=== PATIENT | female | born 1930 | race Caucasian/White ===

== ENCOUNTER 2016-11-29 16:24 | Observation (INO) ==
--- NOTE | 2016-11-29 16:37 | Emergency Department Note ---
Disposition Clinical Impression: Hyperlipidemia, Hypertension, Anxiety, Syncope, Head injury, Elevated INR, Frail elderly Disposition: Admitted As Inpatient Condition: Fair Referrals: Celia Wilcox CNP [Primary Care Provider] - Forms: ED Satisfaction Letter General Adult HPI - General Chief complaint: ED Fall Stated complaint: Fall Time Seen by Provider: 11/29/16 16:33 Source: EMS - History of Present Illness HPI Narrative: 86-year-old female who reports she lives at home alone comes in by EMS. The patient reports she was making some food, she was sitting down, she was getting up to get to her walker. She does remember what happened after that. She states she fell down and hit her head. She has a headache. She reports she may have been unconscious for 20 minutes or so. She was able to crawl to the telephone. The patient reports she was feeling well prior to the event. There is no history of chest pain shortness of breath abdominal pain vomiting or diarrhea she denies any upper or lower extremity pain. There is no history of loss of urine or stool or kasey seizure-like activity. The patient describes significant head pain after the event. There is no history of neck pain or paresis. There has been no trouble moving the arms or legs independently. No history of unilateral arm or leg weakness or slurred speech. The patient denies diabetes. There is no history of bleeding. The patient has had no urine problems. There is no history of fever or cough. Triage notes that the patient is somewhat anxious fearing for her safety based on potential persons in the area or in her attic, he describes multiple breaking and entering into her garage. There may be an element of confusion or delirium regarding her history of other persons living in her attic. Anxiety may also be a significant component. 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 Acidophilus/Pectin, [place] 1 each PO DAILY 11/29/16 11/29/16 [Acidophilus Probiotic Capsule] LORazepam [Ativan] 0.5 mg PO BID PRN 11/29/16 11/29/16 Potassium Chloride [Klor-Con 10] 10 meq PO DAILY 11/29/16 11/29/16 Triamterene/HCTZ 37.5/25mg 1 each PO QAM 11/29/16 11/29/16 [Dyazide] Warfarin [Coumadin] 5 mg PO DAILY 11/29/16 11/29/16 Allergies Allergy/AdvReac Type Severity Reaction Status Date / Time No Known Allergies Allergy Verified 08/19/15 11:23 All systems ED: reviewed and negative except as stated. Past Medical History - Past Medical History Medical history: Reports: arthritis, cancer, hyperlipidemia, hypertension Psychiatric history: Reports: depression, other - Social History Smoking Status: Former smoker Smokeless Tobacco Status: No Alcohol use: Reports: none Drug use: Reports: none Physical Exam - General Limitations: no limitations General appearance: alert - Head Head exam: atraumatic, normocephalic, normal inspection - Eye Eye exam: Present: normal appearance, PERRL, EOMI. Absent: scleral icterus, conjunctival injection, miosis, mydriasis - ENT ENT exam: normal exam, normal oropharynx, mucous membranes moist, TM's normal bilaterally, normal external ear exam - Neck Neck exam: Present: normal inspection, full ROM, trachea midline. Absent: tenderness - Chest Chest inspection: Present: symmetric chest wall rise. Absent: tenderness - Respiratory Respiratory exam: Present: normal lung sounds bilaterally. Absent: respiratory distress - Cardiovascular Cardiovascular exam: Present: regular rate, normal rhythm, normal heart sounds - Abdominal Exam Abdominal exam: Present: soft, Non-Tender. Absent: tenderness, distention, guarding, rebound, rigidity, trauma - Extremities Exam Extremities exam: Present: normal inspection, normal capillary refill, other ( Decreased range of motion secondary to arthritides and age.). Absent: tenderness, pedal edema, joint swelling, calf tenderness - Expanded Lower Extremity Exam Hip/Pelvis exam: Absent: tenderness Lower leg exam: Absent: Homans' sign Neurovascular/Tendon exam: Absent: motor deficit, sensory deficit, tendon deficit - Back Exam Back exam: Present: normal inspection, full ROM. Absent: tenderness, CVA tenderness (R), CVA tenderness (L), vertebral tenderness - Neurological Exam Neurological exam: Present: alert, oriented X3, CN II-XII intact. Absent: motor sensory deficit - Psychiatric Psychiatric exam: Present: normal affect - Skin Skin exam: Present: warm, dry, intact, normal color. Absent: rash, cyanosis, diaphoresis, erythema, pallor, mottled Course Vital Signs Temperature 97.6 F 11/29/16 16:27 Pulse Rate 72 11/29/16 16:27 Respiratory Rate 14 11/29/16 16:27 Blood Pressure 132/76 11/29/16 16:27 O2 Sat by Pulse Oximetry 100 11/29/16 16:27 Temperature 97.6 F 11/29/16 16:27 Pulse Rate 74 11/29/16 17:59 Respiratory Rate 14 11/29/16 17:59 Blood Pressure 123/55 11/29/16 17:59 O2 Sat by Pulse Oximetry 100 11/29/16 17:59 Oxygen Delivery Oxygen Delivery Room Air Medical Decision Making - MDM Narrative Medical decision making narrative: The patient is 86 years old, lives alone at home, had a syncopal event which is well described as well as a head injury. She is on Coumadin, she displays no bleeding or acute neurologic changes. She does have some apparent anxiety related to persons living in the area. There may be an element of delusional thinking as she thinks someone may be in her attic or this may simply reflect anxiety. Given her frail elderly status and syncopal event with head injury in association with hypertension and hyperlipidemia as vascular risk factors, I think would be appropriate to admit the patient for observation. I do not believe the patient had a pulmonary embolism. She has had no chest pain shortness of breath or cough. Her vitals remained stable. I have consulted with the hospitalist on-call. - Lab Data Lab results reviewed: Yes I reviewed the patient's lab results. Result diagrams: 11/29/16 17:12 11/29/16 17:12 Lab Results 11/29/16 11/29/16 11/29/16 Range/Units 17:12 17:12 17:12 WBC 6.1 (4.3-11.1) K/mcL RBC 4.56 (3.82-4.97) M/mcL Hgb 13.4 (11.5-15.4) g/dL Hct 39.6 (35.3-44.9) % MCV 86.8 (83.0-100.0) fL MCH 29.4 (28.0-33.3) pg MCHC 33.8 (31.6-35.5) g/dL RDW 13.7 (11.5-14.5) % Plt Count 247 (140-400) K/mcL MPV 8.9 L (9.4-12.4) fL Immature Gran % 0.3 (0-4) % Seg Neutrophils % 65.7 % Lymphocytes % 24.8 % Monocytes % 6.5 % Eosinophils % 2.0 % Basophils % 0.7 % Neutrophils # 4.0 (1.6-8.9) K/mcL Lymphocytes # 1.5 (0.6-4.6) K/mcL Monocytes # 0.4 (0.0-1.3) K/mcL Eosinophils # 0.1 (0.0-0.6) K/mcL Basophils # 0.0 (0.0-0.2) K/mcL PT 17.2 H (9.4-12.1) Seconds INR 1.6 APTT 37.1 H (26.0-36.0) Seconds Sodium 137 (136-145) mEq/L Potassium 3.7 (3.5-4.5) mEq/L Chloride 101 (98-109) mEq/L Carbon Dioxide 25 (19-29) mEq/L BUN 21 H (7-20) mg/dL Creatinine 0.75 (0.57-1.11) mg/dL Est GFR ( Amer) > 60 (> 60) Est GFR (Non-Af Amer) > 60 (> 60) BUN/Creatinine Ratio 28 H (6-26) Glucose 87 (70-99) mg/dL Calculated Osmolality 286 (280-300) Lactic Acid (0.5-2.2) mmol/L Calcium 9.6 (8.6-10.8) mg/dL Total Bilirubin (0.2-1.2) mg/dL Direct Bilirubin (0.0-0.5) mg/dL Indirect Bilirubin (0.0-1.2) mg/dL AST (5-34) Units/L ALT (0-55) Units/L Alkaline Phosphatase (38-126) Units/L Troponin I (0-0.03) ng/mL C-Reactive Protein (Less than 5) mg/L Serum Total Protein (6.0-8.3) g/dL Albumin (3.5-5.0) g/dL Globulin (2.4-3.5) g/dL Albumin/Globulin Ratio (1.1-2.2) Urine Color (Yellow) Urine Clarity (Clear) Urine pH (5.0-8.0) pH Units Ur Specific [place] (1.010-1.025) Urine Protein (Neg-Trace) mg/dL Urine Glucose (UA) (Normal) mg/dL Urine Ketones (Negative) mg/dL Urine Blood (Negative) Urine Nitrite (Negative) Urine Bilirubin (Negative) Urine Urobilinogen (Normal) mg/dL Ur Leukocyte Esterase (Negative) Urine Microscopic RBC (0-3) per hpf Urine Microscopic WBC (0-3) per hpf Ur Squamous Epith Cells (None-Few) per lpf Urine Bacteria (None-Few) per hpf Hyaline Casts (None-Few) per lpf Ur Culture Indicated? (NO) 11/29/16 11/29/16 11/29/16 Range/Units 17:12 17:12 17:12 WBC (4.3-11.1) K/mcL RBC (3.82-4.97) M/mcL Hgb (11.5-15.4) g/dL Hct (35.3-44.9) % MCV (83.0-100.0) fL MCH (28.0-33.3) pg MCHC (31.6-35.5) g/dL RDW (11.5-14.5) % Plt Count (140-400) K/mcL MPV (9.4-12.4) fL Immature Gran % (0-4) % Seg Neutrophils % % Lymphocytes % % Monocytes % % Eosinophils % % Basophils % % Neutrophils # (1.6-8.9) K/mcL Lymphocytes # (0.6-4.6) K/mcL Monocytes # (0.0-1.3) K/mcL Eosinophils # (0.0-0.6) K/mcL Basophils # (0.0-0.2) K/mcL PT (9.4-12.1) Seconds INR APTT (26.0-36.0) Seconds Sodium (136-145) mEq/L Potassium (3.5-4.5) mEq/L Chloride (98-109) mEq/L Carbon Dioxide (19-29) mEq/L BUN (7-20) mg/dL Creatinine (0.57-1.11) mg/dL Est GFR ( Amer) (> 60) Est GFR (Non-Af Amer) (> 60) BUN/Creatinine Ratio (6-26) Glucose (70-99) mg/dL Calculated Osmolality (280-300) Lactic Acid 0.9 (0.5-2.2) mmol/L Calcium (8.6-10.8) mg/dL Total Bilirubin 0.7 (0.2-1.2) mg/dL Direct Bilirubin 0.2 (0.0-0.5) mg/dL Indirect Bilirubin 0.5 (0.0-1.2) mg/dL AST 26 (5-34) Units/L ALT 22 (0-55) Units/L Alkaline Phosphatase 93 (38-126) Units/L Troponin I 0.00 (0-0.03) ng/mL C-Reactive Protein 3 (Less than 5) mg/L Serum Total Protein 7.5 (6.0-8.3) g/dL Albumin 3.9 (3.5-5.0) g/dL Globulin 3.6 H (2.4-3.5) g/dL Albumin/Globulin Ratio 1.1 (1.1-2.2) Urine Color (Yellow) Urine Clarity (Clear) Urine pH (5.0-8.0) pH Units Ur Specific [place] (1.010-1.025) Urine Protein (Neg-Trace) mg/dL Urine Glucose (UA) (Normal) mg/dL Urine Ketones (Negative) mg/dL Urine Blood (Negative) Urine Nitrite (Negative) Urine Bilirubin (Negative) Urine Urobilinogen (Normal) mg/dL Ur Leukocyte Esterase (Negative) Urine Microscopic RBC (0-3) per hpf Urine Microscopic WBC (0-3) per hpf Ur Squamous Epith Cells (None-Few) per lpf Urine Bacteria (None-Few) per hpf Hyaline Casts (None-Few) per lpf Ur Culture Indicated? (NO) 11/29/16 Range/Units 19:38 WBC (4.3-11.1) K/mcL RBC (3.82-4.97) M/mcL Hgb (11.5-15.4) g/dL Hct (35.3-44.9) % MCV (83.0-100.0) fL MCH (28.0-33.3) pg MCHC (31.6-35.5) g/dL RDW (11.5-14.5) % Plt Count (140-400) K/mcL MPV (9.4-12.4) fL Immature Gran % (0-4) % Seg Neutrophils % % Lymphocytes % % Monocytes % % Eosinophils % % Basophils % % Neutrophils # (1.6-8.9) K/mcL Lymphocytes # (0.6-4.6) K/mcL Monocytes # (0.0-1.3) K/mcL Eosinophils # (0.0-0.6) K/mcL Basophils # (0.0-0.2) K/mcL PT (9.4-12.1) Seconds INR APTT (26.0-36.0) Seconds Sodium (136-145) mEq/L Potassium (3.5-4.5) mEq/L Chloride (98-109) mEq/L Carbon Dioxide (19-29) mEq/L BUN (7-20) mg/dL Creatinine (0.57-1.11) mg/dL Est GFR ( Amer) (> 60) Est GFR (Non-Af Amer) (> 60) BUN/Creatinine Ratio (6-26) Glucose (70-99) mg/dL Calculated Osmolality (280-300) Lactic Acid (0.5-2.2) mmol/L Calcium (8.6-10.8) mg/dL Total Bilirubin (0.2-1.2) mg/dL Direct Bilirubin (0.0-0.5) mg/dL Indirect Bilirubin (0.0-1.2) mg/dL AST (5-34) Units/L ALT (0-55) Units/L Alkaline Phosphatase (38-126) Units/L Troponin I (0-0.03) ng/mL C-Reactive Protein (Less than 5) mg/L Serum Total Protein (6.0-8.3) g/dL Albumin (3.5-5.0) g/dL Globulin (2.4-3.5) g/dL Albumin/Globulin Ratio (1.1-2.2) Urine Color Yellow (Yellow) Urine Clarity Clear (Clear) Urine pH 7.0 (5.0-8.0) pH Units Ur Specific [place] 1.010 (1.010-1.025) Urine Protein Negative (Neg-Trace) mg/dL Urine Glucose (UA) Normal (Normal) mg/dL Urine Ketones Negative (Negative) mg/dL Urine Blood Negative (Negative) Urine Nitrite Positive A (Negative) Urine Bilirubin Negative (Negative) Urine Urobilinogen Normal (Normal) mg/dL Ur Leukocyte Esterase Trace H (Negative) Urine Microscopic RBC 0-3 (0-3) per hpf Urine Microscopic WBC 0-3 (0-3) per hpf Ur Squamous Epith Cells Many H (None-Few) per lpf Urine Bacteria Moderate H (None-Few) per hpf Hyaline Casts None Seen (None-Few) per lpf Ur Culture Indicated? YES A (NO) - Radiology Data Radiology results reviewed: Yes I reviewed the patient's radiology results.
[2016-11-29] MEDS ORDERED: 0.9 % Sodium Chloride 1,000 ML IVC ONE (16:54)
[2016-11-29 17:33] LABS: Basophils % 0.7 %; Eosinophils # 0.1 K/mcL (0.0-0.6); Hematocrit 39.6 % (35.3-44.9); Hemoglobin 13.4 g/dL (11.5-15.4); Immature Granulocytes % 0.3 % (0-4); Lymphocytes # 1.5 K/mcL (0.6-4.6); Lymphocytes % 24.8 %; Mean Corpuscular HGB Conc 33.8 g/dL (31.6-35.5); Mean Corpuscular Hemoglobin 29.4 pg (28.0-33.3); Mean Corpuscular Volume 86.8 fL (83.0-100.0); Mean Platelet Volume 8.9 fL (9.4-12.4); Monocytes # 0.4 K/mcL (0.0-1.3); Monocytes % 6.5 %; Platelet Count 247 K/mcL (140-400); Red Blood Count 4.56 M/mcL (3.82-4.97); Red Cell Distribution Width 13.7 % (11.5-14.5); Segmented Neutrophils % 65.7 %
[2016-11-29 17:42] LABS: INR 1.6; Prothrombin Time 17.2 Seconds (9.4-12.1)
[2016-11-29 17:45] LABS: Activated Partial Thrombo Time 37.1 Seconds (26.0-36.0)
[2016-11-29 17:47] LABS: BUN/Creatinine Ratio 28 (6-26); Blood Urea Nitrogen 21 mg/dL (7-20); Calcium 9.6 mg/dL (8.6-10.8); Carbon Dioxide 25 mEq/L (19-29); Chloride 101 mEq/L (98-109); Glucose 87 mg/dL (70-99); Osmolality,Calculated 286 (280-300); Potassium 3.7 mEq/L (3.5-4.5); Sodium 137 mEq/L (136-145); eGFR For African Americans > 60 (> 60); eGFR For Non-African Americans > 60 (> 60)
[2016-11-29 17:49] LABS: Albumin 3.9 g/dL (3.5-5.0); Albumin/Globulin Ratio 1.1 (1.1-2.2); Bilirubin,Direct 0.2 mg/dL (0.0-0.5); Bilirubin,Indirect 0.5 mg/dL (0.0-1.2); Bilirubin,Total 0.7 mg/dL (0.2-1.2); Globulin 3.6 g/dL (2.4-3.5); Total Protein 7.5 g/dL (6.0-8.3)
[2016-11-29 19:53] LABS: Bilirubin,Urine Negative (Negative); Blood,Urine Negative (Negative); Clarity,Urine Clear (Clear); Color,Urine Yellow (Yellow); Glucose,Urine (UA) Normal (Normal); Ketones,Urine Negative (Negative); Leukocyte Esterase,Urine Trace (Negative); Nitrite,Urine Positive (Negative); Protein,Urine Negative (Neg-Trace); Urobilinogen,Urine Normal (Normal)
[2016-11-29 19:55] LABS: Bacteria,Urine Moderate per hpf (None-Few); Hyaline Casts,Urine None Seen per lpf (None-Few); RBC,Urine 0-3 per hpf (0-3); Squamous Epithelial Cell,Urine Many per lpf (None-Few); WBC,Urine 0-3 per hpf (0-3)
[2016-11-29] MEDS ORDERED: Acetaminophen 325 MG TABLET PO PRN (21:42)
[2016-11-29] MEDS ORDERED: Ondansetron 4 MG/2 ML VIAL IVP PRN (21:42)
[2016-11-29] MEDS ORDERED: Naloxone 0.4 MG/ML INJ IVP PRN (21:42)
[2016-11-29] MEDS ORDERED: 0.9 % Sodium Chloride 1,000 ML IVC SCH (21:45)
[2016-11-29] MEDS ORDERED: *HR* Warfarin 5 MG TABLET PO ONE (22:40)
--- NOTE | 2016-11-29 23:15 | Internal Med History&Physical ---
<Celsa Berg M - Last Filed: 11/29/16 23:44> Date of Encounter: 11/29/16 Time of Encounter: 22:53 Assessment and Plan (1) Syncope Current visit: Yes Status: Acute Patient was getting up from her chair today and reports she "blacked out" and woke on the floor, with some confusion. CT of head negative for acute abnormality. Initial troponin negative and EKG with no changes. UA contaminated, will repeat. Orthostatic VS ordered echocardiogram Carotid dopplers serial troponins continuous diagnostic technologist. Qualifiers: Syncope type: unspecified Qualified Code(s): R55 - Syncope and collapse (2) Warfarin anticoagulation Current visit: Yes Status: Acute Patient takes 5mg of coumadin daily for remote history of DVT. INR subtherapeutic at 1.6. Coumadin ordered for tonight. Recheck PT/INR tomorrow morning. Pharmacy to dose coumadin. 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 She reports approximately 5 years ago. She has been taking 5mg coumadin nightly for this. Repeat dopplers in April of last year reportedly showed no clots. (4) Head injury Current visit: Yes Status: Acute Patient had syncopal episode and fell at home. She woke with a headache and thinks she hit her head. CT of head negative for any acute abnormality. Qualifiers: Encounter type: initial encounter Qualified Code(s): S09.90XA - Unspecified injury of head, initial encounter (5) Frail elderly Current visit: Yes Status: Acute Patient uses a walker, lives alone. She is here for syncope and fall and had difficulty getting to her phone. She reports she has dementia and gets confused at times, but does not take any medication for dementia and is alert and oriented on exam. Consults to social work, PT/OT. (6) DVT prophylaxis Current visit: Yes Status: Acute Up to Chair BID anti-embolic stockings Patient on coumadin for anticoagulation. Internal Medicine - H&P: HPI Chief complaint: Syncope Admitted From: Emergency Dept Plans for Post Hospital Care: Home History of present illness: Ms. Caputo is a 86 year old female with HTN, hyperlipidemia, remote history of breast cancer, history of DVT on coumadin, dementia who called the squad today after fainting at home. She reports she did not feel well this morning, and was getting up from her chair and blacked out, waking up on the floor with her walker tipped over. She reports she was somewhat confused when she came to, and struggled to get herself to the phone to call 911. She reports she could not get up to walk because of her bad knees. She thinks she hit the right side of her head when she fell, and had a headache. She denies any previous dizziness, lightheadedness or fainting episodes. She denies any chest pain, palpitations. She denies any recent fevers, chills, body aches. She reports recent weight loss of 30 lbs over the last 6 months related to an episode of diverticulitis. Evaluation in the ED showed negative troponin, INR of 1.6, BUN slightly elevated concerning for some dehydration, UA concerning for infection, though looked contaminated so will repeat. CT of the head was negative for acute abnormality. CT of the cervical spine was negative for any acute abnormality. CXR showed increased chronic interstitial markings and stable lung nodules, with no acute process. On exam, she is alert and oriented x3, in no distress, heart has regular rate and rhythm with systolic murmur, Lungs have mild expiratory wheeze in left base. She has a right arm tremor she reports is chronic. Cranial nerves intact. Past Med Surg Social Fam HX - Past Medical History Medical history: arthritis, cancer, DVT, dementia, hyperlipidemia, hypertension Psychiatric history: depression, other - Past Surgical History Surgical History: cancer surgery (bilateral mastectomy) - Social History Smoking Status: Former smoker Smokeless Tobacco Status: No Alcohol use: none Drug use: none Current living situation: Home - Independent - Family History Sister Hx Family Respiratory Disorders: Yes Hx Family Cancer: Yes (breast) Father Hx Family Cardiac Disorders: Yes Internal Medicine - H&P: Meds Calcium Carbonate/Vitamin D3 [Calcium 600-Vit D3 200 Tablet] 1 each PO DAILY [History] Cyanocobalamin (Vitamin B-12) [Vitamin B12] 1,000 mcg PO MOFR 11/29/16 [History] L. Acidophilus/Pectin, [place] [Acidophilus Probiotic Capsule] 1 each PO DAILY [History] LORazepam [Ativan] 0.5 mg PO BID PRN 11/29/16 [History] Potassium Chloride [Klor-Con 10] 10 meq PO DAILY 11/29/16 [History] Triamterene/HCTZ 37.5/25mg [Dyazide] 1 each PO QAM 11/29/16 [History] Warfarin [Coumadin] 5 mg PO DAILY 11/29/16 [History] Allergies codeine Allergy (Verified 11/29/16 20:18) Itching atorvastatin [From Lipitor] Adverse Reaction (Verified 11/29/16 20:18) Muscle Pain colesevelam [From WelChol] Adverse Reaction (Verified 11/29/16 20:18) Muscle Pain ezetimibe [From Zetia] Adverse Reaction (Verified 11/29/16 20:18) Muscle Pain pravastatin Adverse Reaction (Verified 11/29/16 20:18) Muscle Pain All Systems PM: A 10-system review of systems was performed and is negative for pertinent findings except as documented above in the HPI. - Constitutional Constitutional: falls, no chills, no fever(s), no night sweats - EENT Eyes: no change in vision, no discharge, no pain, no photophobia Ears: no ear discharge, no ear pain, no tinnitus Nose, mouth and throat: no dysphagia, no nasal discharge, no neck pain, no sore throat - Cardiovascular Cardiovascular ROS IM: syncope, no chest pain, no diaphoresis, no dyspnea, no lightheadedness, no palpitations - Respiratory Respiratory: no cough, no dyspnea, no wheezing, no excessive phlegm production - Gastrointestinal Gastrointestinal: no abdominal pain, no diarrhea, no hematemesis, no hematochezia, no melena, no nausea, no vomiting - Genitourinary Genitourinary: no change in urinary stream, no dysuria, no flank pain, no hematuria - Musculoskeletal Musculoskeletal ROS IM: no numbness, no tingling - Integumentary Integumentary IM: no rash, no unusual bruising - Neurological Neurological ROS: confusion, no convulsions, no focal weakness, no numbness, no tingling, no tremor(s) - Hematologic/Lymphatic Hematologic/Lymphatic: no easy bruising - Constitutional Vitals: Temp Pulse Resp BP Pulse Ox 97.8 F 76 17 123/70 97 11/29/16 21:18 11/29/16 21:18 11/29/16 21:18 11/29/16 21:18 11/29/16 22:35 General appearance: Present: A&O X 3, no acute distress - Head Head exam: Present: atraumatic, normocephalic - Eye Eye exam: Present: PERRL, conjuntiva pink, sclera anicteric Pupils: Present: PERRL - Neck Neck exam general surgery: Present: supple, trachea midline. Absent: lymphadenopathy - Respiratory Respiratory exam: Present: wheezes (left base). Absent: accessory muscle use, rales, rhonchi - Cardiovascular Cardiovascular exam: Present: RRR, +S1, +S2, systolic murmur. Absent: diastolic murmur, gallop, rubs - GI/Abdominal GI/Abdominal exam: Present: normal bowel sounds, soft, no peritoneal signs. Absent: distended, tenderness - Extremities Exam Extremities exam: Present: warm, radial pulses palpable and symetrical. Absent : calf tenderness, cyanotic, pedal edema - Neurological Exam Neurological exam: Present: CN II-XII intact, oriented X3, no focal deficits. Absent: pronater drift, facial droop, speech deficit - Skin Skin exam: Present: dry, intact Internal Med - H&P Results - Labs CBC & Chem 7: 11/29/16 17:12 11/29/16 17:12 - VTE Reasons for not Prescribing Prophylaxis: Treatment not Indicated - Low risk for VTE <Abisai Florse R - Last Filed: 11/30/16 03:22> Date of Encounter: 11/29/16 Internal Medicine - H&P: HPI History of present illness: Ms. Caputo is a 86 year old female All Systems PM: A 10-system review of systems was performed and is negative for pertinent findings except as documented above in the HPI. - Constitutional Vitals: Temp Pulse Resp BP Pulse Ox 98.3 F 72 17 109/51 95 11/30/16 00:20 11/30/16 00:20 11/30/16 00:20 11/30/16 00:23 11/30/16 00:20 Internal Med - H&P Results - Labs CBC & Chem 7: 11/30/16 00:14 11/30/16 00:14 Labs: Short CBC 11/30/16 Range/Units 00:14 WBC 5.4 (4.3-11.1) K/mcL Hgb 12.1 (11.5-15.4) g/dL Hct 35.3 (35.3-44.9) % Plt Count 212 (140-400) K/mcL Neutrophils # 3.3 (1.6-8.9) K/mcL BMP 11/30/16 00:14 Sodium 139 Potassium 3.4 L Chloride 104 Carbon Dioxide 25 BUN 22 H Creatinine 0.81 Glucose 148 H Calcium 9.0 Cardiac Enzymes 11/30/16 Range/Units 00:14 Troponin I 0.00 (0-0.03) ng/mL - Attending Attestation I examined this patient and my medical decision-making was reviewed with the PATIENT CARE TECHNICIAN/PA/Advanced Practice Nurse/Resident Physician. I agree with the documented findings, disposition and treatment plan as described except to the extent set forth below. I have personally evaluated the pt and discussed the details with the WATER ENGINEER. Pt had a fall / syncope at home. Orthostatic vitals negative. O/E - systolic murmur present -- will obtain echo to evaluate for aortic stenosis. Pt has resting tremors - may need neurology evaluation, as outpatient versus inpatient , for possible parkinson's disease. PT / OT evaluation. Abnormal UA -multiple epithelial cells -- will repeat UA. If repeat UA is abnormal, will treat her with antibiotics
[2016-11-29] MEDS ORDERED: *HR* LORazepam 0.5 MG TABLET PO PRN (23:54)
[2016-11-30 00:32] LABS: Basophils # 0.1 K/mcL (0.0-0.2); Basophils % 0.9 %; Eosinophils # 0.2 K/mcL (0.0-0.6); Hematocrit 35.3 % (35.3-44.9); Hemoglobin 12.1 g/dL (11.5-15.4); Immature Granulocytes % 0.2 % (0-4); Lymphocytes # 1.3 K/mcL (0.6-4.6); Lymphocytes % 24.9 %; Mean Corpuscular HGB Conc 34.3 g/dL (31.6-35.5); Mean Corpuscular Volume 87.4 fL (83.0-100.0); Mean Platelet Volume 9.1 fL (9.4-12.4); Monocytes # 0.5 K/mcL (0.0-1.3); Monocytes % 9.2 %; Neutrophils # 3.3 K/mcL (1.6-8.9); Platelet Count 212 K/mcL (140-400); Red Blood Count 4.04 M/mcL (3.82-4.97); Red Cell Distribution Width 13.7 % (11.5-14.5); Segmented Neutrophils % 61.8 %
[2016-11-30 00:37] LABS: INR 1.7; Prothrombin Time 18.2 Seconds (9.4-12.1)
[2016-11-30 00:39] LABS: Activated Partial Thrombo Time 34.7 Seconds (26.0-36.0)
[2016-11-30 00:44] LABS: Sodium 139 mEq/L (136-145)
[2016-11-30 00:45] LABS: BUN/Creatinine Ratio 27 (6-26); Blood Urea Nitrogen 22 mg/dL (7-20); Carbon Dioxide 25 mEq/L (19-29); Chloride 104 mEq/L (98-109); Glucose 148 mg/dL (70-99); Osmolality,Calculated 294 (280-300); Potassium 3.4 mEq/L (3.5-4.5); eGFR For African Americans > 60 (> 60); eGFR For Non-African Americans > 60 (> 60)
[2016-11-30] MEDS: Calcium 600-Vit D3 PO SCH (09:33)
[2016-11-30] MEDS: Cyanocobalamin (B-12) 1,000 MCG TABLET PO SCH (09:39)
[2016-11-30] MEDS: Lactobacillus 1 EACH CAP.SPRINK PO SCH (09:39)
--- NOTE | 2016-11-30 15:24 | Internal Med Progress Note ---
Date of Encounter: 11/30/16 Time of Encounter: 10:00 - Assessment and plan (1) Syncope Current Visit: Yes Status: Acute Assessment and plan: Patient currently denies lightheadedness, dizziness. She does endorse low back pain. Likely secondary to urinary tract infection. Cervical spine CT negative. Chest x-ray negative. Head CT negative. Echo and carotid artery pending. The TM PT consultations are pending. Of note, patient is displaying symptoms consistent with either acute delirium secondary to the urinary tract infection or underlying dementia as her baseline is unknown. She is continually stating she has to go home because she left chicken out that needs to be put in the fridge. We will continue to monitor her mentation and treat her urinary tract infection. She refuses to take pills, Ativan for agitation. ITS Impressions Cervical Spine CT 11/29/16 16:54 IMPRESSION: No acute abnormality of the cervical spine. D/ / Chang Pierson MD / Chang Pierson MD Interpreting Provider: Chang Pierson MD Chest X-Ray 11/29/16 16:54 IMPRESSION: No acute process. D/ / 11/29/2016 18:00:40 Purnima Greene MD / [place] Interpreting Provider: Purnima Greene MD :[address] 11/29/16 16:54 IMPRESSION: No acute intracranial abnormality. D/ / 11/29/2016 17:59:43 Purnima Greene MD / [place] Interpreting Provider: Purnima Greene MD Qualifiers: Syncope type: unspecified Qualified Code(s): R55 - Syncope and collapse (2) UTI (urinary tract infection) Current Visit: Yes Status: Acute Assessment and plan: Preliminary culture gram-negative rods, continue ceftriaxone, sensitivities pending. (3) Senile dementia, paranoid type Current Visit: Yes Status: Acute Assessment and plan: Throughout the course of today, patient has had behavior consistent with fusion as well as paranoia. At times, patient is concerned that someone is living in her attic at home and she states that this person has doubled her electric bill because of their presence. She states that she is estranged from all 3 of her children and does not appear to have any support. Unknown what her baseline is however her behaviors consistent with paranoia and possible dementia. Of course , could be confounded with her acute urinary tract infection. Patient is paranoid and refuses to take pills. In the event that she may become agitated overnight, will order IV Ativan as needed. (4) Anxiety Current Visit: Yes Status: Chronic (5) DVT prophylaxis Current Visit: Yes Status: Acute Assessment and plan: INR subtherapeutic with Coumadin, will order IPC's (6) Frail elderly Current Visit: Yes Status: Acute Assessment and plan: Acute on chronic. She lives alone and does not appear to have any support. She states that she does have a neighbor who brings her male over but is otherwise on her own. She states she uses a walker and cane. OT and PT evaluations pending. Given her dementia and paranoia at this time, she will likely refuse services. (7) History of DVT (deep vein thrombosis) Current Visit: Yes Status: Chronic (8) Hypertension Current Visit: Yes Status: Chronic Assessment and plan: Controlled, will continue to trend and adjust medications as indicated. (9) Warfarin anticoagulation Current Visit: Yes Status: Chronic Assessment and plan: Subtherapeutic INR, pharmacy to dose - Subjective Interval history: Patient seen and examined. On examination, patient is sitting upright in bed putting her makeup on and eating her breakfast. She currently complains of low back pain but states she does not want to take pain medications because she does not like pills. She is alert and oriented 3 and answers questions appropriately. - Constitutional Vitals: Temp Pulse Resp BP Pulse Ox 97.9 F 64 16 108/54 98 11/30/16 11:30 11/30/16 11:30 11/30/16 11:30 11/30/16 11:30 11/30/16 11:30 General appearance: Present: A&O X 3, pleasant, no acute distress, answers questions appropriately - Head Head exam: Present: atraumatic, normocephalic - Eye Eye exam: Present: PERRL, conjuntiva pink, sclera anicteric Pupils: Present: PERRL - Neck Neck exam general surgery: Present: supple, trachea midline. Absent: lymphadenopathy - Respiratory Respiratory exam: Present: CTAB. Absent: accessory muscle use, rales, respiratory distress, rhonchi, wheezes - Cardiovascular Cardiovascular exam: Present: RRR, +S1, +S2, systolic murmur. Absent: diastolic murmur, gallop, rubs - GI/Abdominal GI/Abdominal exam: Present: normal bowel sounds, soft, no peritoneal signs. Absent: distended, tenderness - Extremities Exam Extremities exam: Present: warm, radial pulses palpable and symetrical. Absent : calf tenderness, cyanotic, pedal edema - Neurological Exam Neurological exam: Present: alert, CN II-XII intact, oriented X3, no focal deficits, strengths equal and symetr throughout. Absent: pronater drift, facial droop, speech deficit - Skin Skin exam: Present: dry, intact, pallor, warm Internal Medicine: Result - Labs CBC & Chem 7: 11/30/16 00:14 11/30/16 00:14 Labs: Short CBC 11/30/16 Range/Units 00:14 WBC 5.4 (4.3-11.1) K/mcL Hgb 12.1 (11.5-15.4) g/dL Hct 35.3 (35.3-44.9) % Plt Count 212 (140-400) K/mcL Neutrophils # 3.3 (1.6-8.9) K/mcL BMP 11/30/16 00:14 Sodium 139 Potassium 3.4 L Chloride 104 Carbon Dioxide 25 BUN 22 H Creatinine 0.81 Glucose 148 H Calcium 9.0 Cardiac Enzymes 11/30/16 11/30/16 Range/Units 00:14 06:23 Troponin I 0.00 0.00 (0-0.03) ng/mL - ABG Interpretation ABG results: PT/INR, D-dimer PT 18.2 Seconds (9.4-12.1) H 11/30/16 00:14 - VTE Reasons for not Prescribing Prophylaxis: Treatment not Indicated - Low risk for VTE Consult Discharge Plan - Plan Referrals: Celia Wilcox, DIE REAMER [Primary Care Provider] - 12/10/16 3:00 pm
[2016-11-30] MEDS ORDERED: *HR* LORazepam 2 MG/ML VIAL IVP PRN (15:30)
--- NOTE | 2016-11-30 16:18 | Electrocardiograph Report ---
[facility] Test Date: 2016-11-29 Pat Name: Alka Caputo Department: [id number] Room: 3B11 Gender: F Equipment Detailer: : 1930 Requested By: Kam House Order Number: [id number] Reading MD: Marlyn Bender Measurements Intervals [place] Rate: 68 P: 50 MA: 164 QRS: -16 QRSD: 77 T: 44 QT: 419 QTc: 436 Interpretive Statements SINUS RHYTHM Electronically Signed On 11-30-16 16:16:24 EST by Marlyn Bender
[2016-11-30] MEDS ORDERED: *HR* Warfarin 5 MG TABLET PO SCH (18:00)
[2016-11-30] MEDS ORDERED: Warfarin perPT PO PRN (18:00)
[2016-12-01 05:45] LABS: INR 2.2; Prothrombin Time 24.3 Seconds (9.4-12.1)
[2016-12-01 05:50] LABS: Blood Urea Nitrogen 22 mg/dL (7-20); Carbon Dioxide 24 mEq/L (19-29); Chloride 108 mEq/L (98-109); Potassium 3.7 mEq/L (3.5-4.5); Sodium 141 mEq/L (136-145)
[2016-12-01 05:51] LABS: BUN/Creatinine Ratio 35 (6-26); Calcium 8.7 mg/dL (8.6-10.8); Glucose 85 mg/dL (70-99); Osmolality,Calculated 295 (280-300); eGFR For African Americans > 60 (> 60); eGFR For Non-African Americans > 60 (> 60)
[2016-12-01] MEDS: Calcium 600-Vit D3 PO SCH (08:11)
[2016-12-01] MEDS: Lactobacillus 1 EACH CAP.SPRINK PO SCH (08:13)
[2016-12-01] MEDS ORDERED: *HR* Warfarin 2.5 MG TABLET PO ONE (18:00)
--- NOTE | 2016-12-01 19:05 | Internal Med Progress Note ---
Date of Encounter: 12/01/16 Time of Encounter: 10:40 - Assessment and plan (1) Frail elderly Current Visit: Yes Status: Acute (2) UTI (urinary tract infection) Current Visit: Yes Status: Acute Qualifiers: Urinary tract infection type: site unspecified Hematuria presence: without hematuria Qualified Code(s): N39.0 - Urinary tract infection, site not specified (3) Fall Current Visit: Yes Status: Acute Assessment and plan: Plan With her physical deconditioning,Fall with inability to get up for long duration. With her recent delusion. Discussed with staff feels unsafe for discharge home. Patient currently on anticoagulant. No social support, needs supervision at least for1- 2 weeks. We will consult transition social worker. Check 25- hydroxy vitamin D and vitamin B12 , Continue current antibiotics Qualifiers: Encounter type: initial encounter Qualified Code(s): W19.XXXA - Unspecified fall, initial encounter - Time Spent With Patient 25 - 35 minutes - Subjective Interval history: Patient is feeling better. Patient denies any hallucination or delusions. Patient is very motivated to go home. She is complaining of generalized weakness. Need assistance getting up from bed, needed assistance with walker . Physical therapy came and evaluated patient today. Recommended SNF - Constitutional Vitals: Temp Pulse Resp BP Pulse Ox 98.2 F 74 18 120/62 95 12/01/16 18:58 12/01/16 18:58 12/01/16 18:58 12/01/16 18:58 12/01/16 18:58 General appearance: Present: A&O X 3, pleasant, no acute distress, answers questions appropriately - Head Head exam: Present: atraumatic, normocephalic - Neck Neck exam general surgery: Present: supple, trachea midline. Absent: lymphadenopathy - Respiratory Respiratory exam: Present: CTAB. Absent: accessory muscle use, rales, rhonchi, wheezes - Cardiovascular Cardiovascular exam: Present: RRR, +S1, +S2. Absent: diastolic murmur, gallop, rubs, systolic murmur - GI/Abdominal GI/Abdominal exam: Present: normal bowel sounds, soft, no peritoneal signs. Absent: distended, tenderness - Extremities Exam Extremities exam: Present: warm, radial pulses palpable and symetrical. Absent : calf tenderness, cyanotic, pedal edema - Neurological Exam Neurological exam: Present: CN II-XII intact, oriented X3, no focal deficits. Absent: pronater drift, facial droop, speech deficit - Skin Skin exam: Present: dry, intact Internal Medicine: Result - Labs CBC & Chem 7: 11/30/16 00:14 12/01/16 05:18 Labs: BMP 12/01/16 05:18 Sodium 141 Potassium 3.7 Chloride 108 Carbon Dioxide 24 BUN 22 H Creatinine 0.63 Glucose 85 Calcium 8.7 - ABG Interpretation ABG results: PT/INR, D-dimer PT 24.3 Seconds (9.4-12.1) H 12/01/16 05:18 - VTE Reasons for not Prescribing Prophylaxis: Treatment not Indicated - Low risk for VTE Consult Discharge Plan - Plan Referrals: Celia Wilcox CNP [Primary Care Provider] - 12/10/16 3:00 pm
[2016-12-02 04:39] LABS: INR 1.9; Prothrombin Time 21.3 Seconds (9.4-12.1)
[2016-12-02 05:04] LABS: Magnesium 1.6 mg/dL (1.6-2.6); Phosphorous 2.9 mg/dL (2.3-4.7)
[2016-12-02] MEDS: Thiamine (B-1) 100 MG TABLET PO SCH (09:13)
[2016-12-02] MEDS: Lactobacillus 1 EACH CAP.SPRINK PO SCH (09:13)
[2016-12-02] MEDS: Calcium 600-Vit D3 PO SCH (09:16)
[2016-12-02] MEDS: *HR* Warfarin 5 MG TABLET PO SCH (18:12)
--- NOTE | 2016-12-02 18:51 | Internal Med Progress Note ---
Date of Encounter: 12/02/16 Time of Encounter: 09:15 - Assessment and plan (1) Frail elderly Current Visit: Yes Status: Acute (2) UTI (urinary tract infection) Current Visit: Yes Status: Acute Qualifiers: Urinary tract infection type: site unspecified Hematuria presence: without hematuria Qualified Code(s): N39.0 - Urinary tract infection, site not specified (3) Fall Current Visit: Yes Status: Acute Assessment and plan: Plan The patient continued to have trouble with ambulation without senior agricultural assistant. Feels unconfident and unsafe to go home . Patient needs rehabilitation. Continue IV fluid continue antibiotic. Her mental status is clear. No hallucination or delusions. Patient is very cooperative. She is competent to take decision. Discussed with staff and social services analyst to coordinate placement next a.m. continue physical therapy. Vitamin D supplement. Patient is currently on anticoagulation for DVT in the past, with her physical for may consider discontinuing anticoagulation. May consider contacting her oncologist in a.m. Qualifiers: Encounter type: initial encounter Qualified Code(s): W19.XXXA - Unspecified fall, initial encounter - Subjective Interval history: Patient is complaining of generalized weakness. Patient still has trouble ambulating without assistance. She is still feels unsteady on her feet - Constitutional Vitals: Temp Pulse Resp BP Pulse Ox 98.0 F 82 16 95/55 94 L 12/02/16 15:43 12/02/16 15:43 12/02/16 15:43 12/02/16 15:43 12/02/16 15:43 General appearance: Present: A&O X 3, pleasant, no acute distress, answers questions appropriately - Head Head exam: Present: atraumatic, normocephalic - Eye Eye exam: Present: conjuntiva pink, sclera anicteric - Neck Neck exam general surgery: Present: supple, trachea midline. Absent: lymphadenopathy - Respiratory Respiratory exam: Absent: accessory muscle use, rales, rhonchi, wheezes - Cardiovascular Cardiovascular exam: Present: RRR, +S1, +S2. Absent: diastolic murmur, gallop, rubs, systolic murmur - GI/Abdominal GI/Abdominal exam: Present: normal bowel sounds, soft, no peritoneal signs. Absent: distended, tenderness - Extremities Exam Extremities exam: Present: warm, radial pulses palpable and symetrical. Absent : calf tenderness, cyanotic, pedal edema - Neurological Exam Neurological exam: Present: CN II-XII intact, oriented X3, no focal deficits. Absent: facial droop, speech deficit - Skin Skin exam: Present: dry, intact Internal Medicine: Result - Labs CBC & Chem 7: 11/30/16 00:14 12/01/16 05:18 - ABG Interpretation ABG results: PT/INR, D-dimer PT 21.3 Seconds (9.4-12.1) H 12/02/16 03:30 - VTE Reasons for not Prescribing Prophylaxis: Treatment not Indicated - Low risk for VTE Consult Discharge Plan - Plan Referrals: Celia Wilcox CNP [Primary Care Provider] - 12/10/16 3:00 pm
[2016-12-03 04:46] LABS: INR 1.8; Prothrombin Time 20.2 Seconds (9.4-12.1)
[2016-12-03] MEDS: Lactobacillus 1 EACH CAP.SPRINK PO SCH (07:45)
[2016-12-03] MEDS: Thiamine (B-1) 100 MG TABLET PO SCH (07:45)
[2016-12-03] MEDS: Calcium 600-Vit D3 PO SCH (07:46)
[2016-12-03] MEDS: Cyanocobalamin (B-12) 1,000 MCG TABLET PO SCH (07:46)
--- NOTE | 2016-12-03 09:11 | Internal Med Progress Note ---
Date of Encounter: 12/03/16 Time of Encounter: 08:45 - Assessment and plan (1) Frail elderly Current Visit: Yes Status: Acute Assessment and plan: Need reevaluation by physical therapy today. Social service is going to come and discuss the plan of referral to rehabilitation unit (2) UTI (urinary tract infection) Current Visit: Yes Status: Acute Assessment and plan: Preliminary culture gram-negative rods, change antibiotic to ciprofloxacin twice a day Qualifiers: Urinary tract infection type: site unspecified Hematuria presence: without hematuria Qualified Code(s): N39.0 - Urinary tract infection, site not specified (3) Fall Current Visit: Yes Status: Acute Assessment and plan: pLAN Paste on my evaluation and status evaluation patient continued to be unsafe TO go home alone needs supervision. Reevaluation by physical therapy today awaiting protective services social worker for arrangement for rehabilitation Qualifiers: Encounter type: initial encounter Qualified Code(s): W19.XXXA - Unspecified fall, initial encounter - Time Spent With Patient less than 15 minutes - Subjective Interval history: Patient denies any dysuria. Patient denies any nausea or vomiting. Patient denies any abdominal pain. Patient denies any motor or sensory changes. She still complaining of generalized weakness, hard to ambulate independently patient denies any dizziness - Constitutional Vitals: Temp Pulse Resp BP Pulse Ox 97.8 F 63 16 124/71 98 12/03/16 07:27 12/03/16 07:27 12/03/16 07:27 12/03/16 07:27 12/03/16 07:27 General appearance: Present: A&O X 3, pleasant, no acute distress, answers questions appropriately - Head Head exam: Present: atraumatic, normocephalic - Neck Neck exam general surgery: Present: supple, trachea midline. Absent: lymphadenopathy - Respiratory Respiratory exam: Present: CTAB. Absent: accessory muscle use, rales, rhonchi, wheezes - Cardiovascular Cardiovascular exam: Present: RRR, +S1, +S2. Absent: diastolic murmur, gallop, rubs, systolic murmur - GI/Abdominal GI/Abdominal exam: Present: normal bowel sounds, soft, no peritoneal signs. Absent: distended, tenderness - Neurological Exam Neurological exam: Present: CN II-XII intact, no focal deficits. Absent: facial droop, speech deficit - Skin Skin exam: Present: dry, intact Internal Medicine: Result - Labs CBC & Chem 7: 11/30/16 00:14 12/01/16 05:18 - ABG Interpretation ABG results: PT/INR, D-dimer PT 20.2 Seconds (9.4-12.1) H 12/03/16 03:40 - VTE Reasons for not Prescribing Prophylaxis: Treatment not Indicated - Low risk for VTE Consult Discharge Plan - Plan Referrals: Celia Wilcox CNP [Primary Care Provider] - 12/10/16 3:00 pm
[2016-12-03] MEDS: Cefuroxime PO 500 MG TABLET PO SCH (17:15)
[2016-12-03] MEDS: *HR* Warfarin 5 MG TABLET PO SCH (17:15)
[2016-12-04 04:31] LABS: INR 1.8; Prothrombin Time 20.3 Seconds (9.4-12.1)
[2016-12-04] MEDS: Cefuroxime PO 500 MG TABLET PO SCH (06:35)
[2016-12-04] MEDS: Thiamine (B-1) 100 MG TABLET PO SCH (07:49)
[2016-12-04] MEDS: Lactobacillus 1 EACH CAP.SPRINK PO SCH (07:49)
[2016-12-04] MEDS: Calcium 600-Vit D3 PO SCH (07:49)
[2016-12-04 11:11] VITALS: BP 127/64
--- NOTE | 2016-12-04 13:14 | Discharge Summary ---
Date of Encounter: 12/04/16 Time of Encounter: 11:45 - Discharge Diagnosis (1) Syncope Priority: Primary Status: Acute Comments: Patient remained asymptomatic throughout this admission with stable vital signs. Likely secondary to urinary tract infection which revealed Enterobacter cloacae with only resistance to nitrofurantoin and otherwise pansensitive. Treated with ceftriaxone and Ceftin while admitted. Will continue Ceftin upon discharge to complete a [address] course. Cervical spine CT negative. Chest x- ray negative. Head CT negative. Echo and carotid ultrasounds were ordered however the patient refused. OT and PT both recommended ECF placement however the alert and oriented 3 patient refused. According to outreach and education social worker note, one of the patient's daughters offered to private pay for ECF however the patient refused. She is being sent home with home health services and with APS referral. ITS Impressions Cervical Spine CT 11/29/16 16:54 IMPRESSION: No acute abnormality of the cervical spine. D/ / Chang Pierson MD / Chang Pierson MD Interpreting Provider: Chang Pierson MD Chest X-Ray 11/29/16 16:54 IMPRESSION: No acute process. D/ / 11/29/2016 18:00:40 Purnima Greene MD / [place] Interpreting Provider: Purnima Greene MD :[address] 11/29/16 16:54 IMPRESSION: No acute intracranial abnormality. D/ / 11/29/2016 17:59:43 Purnima Greene MD / [place] Interpreting Provider: Purnima Greene MD Qualifiers: Syncope type: unspecified Qualified Code(s): R55 - Syncope and collapse (2) UTI (urinary tract infection) Priority: Primary Status: Acute Comments: Urine culture revealing Enterobacter cloacae and she was treated with ceftriaxone for 4 doses then changed to by mouth Ceftin for one day, will complete Ceftin course upon discharge. (3) Senile dementia, paranoid type Priority: Primary Status: Acute Comments: During this admission the patient was alert and oriented 3 however would have bouts of paranoia. Follow-up outpatient. (4) Anxiety Priority: Secondary Status: Chronic (5) DVT prophylaxis Priority: Primary Status: Acute Comments: IPC's ordered as her INR was subtherapeutic on Coumadin. (6) Frail elderly Priority: Primary Status: Acute (7) History of DVT (deep vein thrombosis) Priority: Secondary Status: Chronic (8) Hypertension Priority: Secondary Status: Chronic Comments: Controlled, recommended continued follow-up outpatient. (9) Warfarin anticoagulation Priority: Secondary Status: Chronic - Discharge Medications Prescriptions: Cefuroxime PO [Ceftin] 500 mg PO Q12HR #10 tablet Home Medications: Calcium Carbonate/Vitamin D3 [Calcium 600-Vit D3 200 Tablet] 1 each PO DAILY [History] Cyanocobalamin (Vitamin B-12) [Vitamin B12] 1,000 mcg PO MOFR 11/29/16 [History] L. Acidophilus/Pectin, Patrick [Acidophilus Probiotic Capsule] 1 each PO DAILY [History] LORazepam [Ativan] 0.5 mg PO BID PRN 11/29/16 [History] Potassium Chloride [Klor-Con 10] 10 meq PO DAILY 11/29/16 [History] Triamterene/HCTZ 37.5/25mg [Dyazide] 1 each PO QAM 11/29/16 [History] Warfarin [Coumadin] 5 mg PO DAILY 11/29/16 [History] Cefuroxime PO [Ceftin] 500 mg PO Q12HR #10 tablet 12/04/16 [Rx] Allergies/Adverse Reactions: Allergies codeine Allergy (Verified 11/29/16 20:18) Itching atorvastatin [From Lipitor] Adverse Reaction (Verified 11/29/16 20:18) Muscle Pain colesevelam [From WelChol] Adverse Reaction (Verified 11/29/16 20:18) Muscle Pain ezetimibe [From Zetia] Adverse Reaction (Verified 11/29/16 20:18) Muscle Pain pravastatin Adverse Reaction (Verified 11/29/16 20:18) Muscle Pain Date of admission: 11/29/16 20:13 Primary care physician: Celia WilcoxEDDIE Consults: 11/29/16 21:32 Consult to International Trade Teacher [CONS] Routine Reason for SW Consult: possible ECF placement 11/29/16 23:37 Consult to Occupational Therapy [CONS] Routine Comment: Evaluate, develop and implement POC Consult to Physical Therapy [CONS] Routine Comment: Evaluate, develop and implement POC Discharging clinician: Nelda Rae Anticipated date of discharge: 12/04/16 ([address]; home with HH and APS referral) - Patient Status Disposition: Home Health Service Condition: Fair Functional capacity at discharge: uses cane/walker Overall status at discharge: patient is back to baseline - Discharge Instructions Follow Up With: Celia Wilcox CNP [Primary Care Provider] - 12/10/16 3:00 pm Additional Instructions: Follow-up with primary care provider as scheduled - Diet and Activity Activity: as per physical therapy, increase activity as tolerated Diet: low salt diet Hospital course: Ms. Caputo is a 86 year old female with past medical history of hypertension, hyperlipidemia, remote history of breast cancer, history of DVT on Coumadin, and dementia. Patient dispatched squad to her house after she fell. Patient states she did not feel well on the morning of presentation when she got up from her chair, she states that she blacked out and woke up on the floor with her walker tipped over. Patient stating she was initially confused after the fall prompting her presentation. Patient stating she thinks she had her right side and her head fell. She denied any prior dizziness, lightheadedness, or syncopal episodes. Patient denied chest pain or palpitations. Patient did endorse weight loss of 30 pounds over the past 6 months due to an episode of diverticulitis. Workup in the emergency department revealing urinary tract infection. CT of cervical spine negative. Chest x-ray negative. Head CT negative. Patient was admitted to the hospitalist service for further evaluation and management. Of note, an echo and carotid ultrasounds were ordered however the patient refused them. Patient was admitted and observed over the course of 6 days. While she remained alert and oriented 3 throughout this admission, she had bouts of paranoia. OT and PT recommended ECF placement however given her observation status, this would have to be private pay. consulting services manager was brought on board who had a lot of difficulty contacting the patient's family as she stated her 3 adult children are estranged from her. We were able to get a hold of one of her daughters who offered to privately pay for ECF but the patient refused. She was amenable to home health services and per social work report, referrals made APS. She was treated with ceftriaxone then Ceftin while admitted for her urinary tract infection. She was discharged home with home health services in stable condition with close outpatient follow- up recommended in with a referral made to APS. ITS Impressions Cervical Spine CT 11/29/16 16:54 IMPRESSION: No acute abnormality of the cervical spine. D/ / Chang Pierson MD / Chang Pierson MD Interpreting Provider: Chang Pierson MD Chest X-Ray 11/29/16 16:54 IMPRESSION: No acute process. D/ / 11/29/2016 18:00:40 Purnima Greene MD / [place] Interpreting Provider: Purnima Greene MD Head CT 11/29/16 16:54 IMPRESSION: No acute intracranial abnormality. D/ / 11/29/2016 17:59:43 Purnima Greene MD / [place] Interpreting Provider: Purnima Greene MD - Time Spent with Patient Total time spent providing and/or coordinating discharge services: - Constitutional Vitals: Temp Pulse Resp BP Pulse Ox 98.4 F 74 16 127/64 94 L 12/04/16 11:10 12/04/16 11:10 12/04/16 11:10 12/04/16 11:10 12/04/16 11:10 General appearance: Present: A&O X 3, pleasant, no acute distress, answers questions appropriately - Head Head exam: Present: atraumatic, normocephalic - Eye Eye exam: Present: PERRL, conjuntiva pink, sclera anicteric Pupils: Present: PERRL - Neck Neck exam general surgery: Present: supple, trachea midline. Absent: lymphadenopathy - Respiratory Respiratory exam: Present: CTAB. Absent: accessory muscle use, rales, respiratory distress, rhonchi, wheezes - Cardiovascular Cardiovascular exam: Present: RRR, +S1, +S2. Absent: diastolic murmur, gallop, rubs, systolic murmur - GI/Abdominal GI/Abdominal exam: Present: normal bowel sounds, soft, no peritoneal signs. Absent: distended, tenderness - Extremities Exam Extremities exam: Present: warm, radial pulses palpable and symetrical. Absent : calf tenderness, cyanotic, pedal edema - Neurological Exam Neurological exam: Present: alert, CN II-XII intact, oriented X3, no focal deficits, strengths equal and symetr throughout. Absent: pronater drift, facial droop, speech deficit - Skin Skin exam: Present: dry, intact, pallor, warm - VTE Reasons for not Prescribing Prophylaxis: Treatment not Indicated - Low risk for VTE
--- NOTE | 2016-12-04 13:56 | Physician Discharge Referral ---
Home Health/Hosp Referral Info Transfer to: Home Health Attending Provider: Cali Rae CNP Provider in Charge Post Discharge: PCP - Diagnosis (1) Syncope Priority: Primary Status: Acute (2) UTI (urinary tract infection) Priority: Primary Status: Acute (3) Senile dementia, paranoid type Priority: Primary Status: Acute (4) Anxiety Priority: Secondary Status: Chronic (5) DVT prophylaxis Priority: Primary Status: Acute (6) Frail elderly Priority: Primary Status: Acute (7) History of DVT (deep vein thrombosis) Priority: Secondary Status: Chronic (8) Hypertension Priority: Secondary Status: Chronic (9) Warfarin anticoagulation Priority: Secondary Status: Chronic - Respiratory Orders Smoking Cessation: Smoking cessation has been advised. For more information, call the [employer] Tobacco Quit Line at 4-172-RVTT-NOW. - Diet/Nutrition Diet/Nutrition Orders: No Added Salt (ADRIAN) - Activity Activity Orders: Ambulate (per PT), Walker - Services Needed Following services are medically necessary services: Nursing, Home Health Aide, Physical Therapy, Occupational Therapy - Transfer Medications Prescriptions: Cefuroxime PO [Ceftin] 500 mg PO Q12HR #10 tablet Home Medications: Calcium Carbonate/Vitamin D3 [Calcium 600-Vit D3 200 Tablet] 1 each PO DAILY [History] Cyanocobalamin (Vitamin B-12) [Vitamin B12] 1,000 mcg PO MOFR 11/29/16 [History] L. Acidophilus/Pectin, Hagan [Acidophilus Probiotic Capsule] 1 each PO DAILY [History] LORazepam [Ativan] 0.5 mg PO BID PRN 11/29/16 [History] Potassium Chloride [Klor-Con 10] 10 meq PO DAILY 11/29/16 [History] Triamterene/HCTZ 37.5/25mg [Dyazide] 1 each PO QAM 11/29/16 [History] Warfarin [Coumadin] 5 mg PO DAILY 11/29/16 [History] Cefuroxime PO [Ceftin] 500 mg PO Q12HR #10 tablet 12/04/16 [Rx] Allergies/Adverse Reactions: Allergies codeine Allergy (Verified 11/29/16 20:18) Itching atorvastatin [From Lipitor] Adverse Reaction (Verified 11/29/16 20:18) Muscle Pain colesevelam [From WelChol] Adverse Reaction (Verified 11/29/16 20:18) Muscle Pain ezetimibe [From Zetia] Adverse Reaction (Verified 11/29/16 20:18) Muscle Pain pravastatin Adverse Reaction (Verified 11/29/16 20:18) Muscle Pain Certification: Further, I certify that my clinical findings support that this patient is homebound (i.e. absences from home require considerable and taxing effort and are for medical reasons or adventist services or infrequently or short duration when for other reasons) because: Homebound Reason: Patient requires assistance of a person or device to safely leave home, Leaving home requires considerable and taxing effort due to condition Attestation: My signature below is to certify that this patient is under my care and that I, or nurse practitioner, or a physician's bookkeeping assistant working with me, has a face-to -face encounter with this patient.
[2016-12-04] MEDS ORDERED: *HR* Warfarin 7.5 MG TABLET PO ONE (18:00)
[2016-12-05] MEDS ORDERED: *HR* Warfarin 5 MG TABLET PO SCH (18:00)
== END 2016-12-04 14:40 | disposition home health service (06) ==
LOC: EMEROO 16:24 → 3BNU 16:24
PROVIDERS: ADMIT Nurse Practitioner Family; ATTEND Nurse Practitioner Family